=== PATIENT | female | born 1995 | race African-American/Black ===

== ENCOUNTER 2016-08-18 16:09 | Emergency (ER) | payer MEDICAID ==
[~2016-08-18] VITALS: Ht 154.9 cm; Wt 57.2 kg
[~2016-08-18 16:09] MED LIST: ALBUTEROL SULF8.5 GM INH; AMOXICILLIN500 MG ORAL; BACITRACIN1 APPLIC TOPIC; IBUPROFEN600 MG ORAL; NITROFURANTOIN100 M2 ORAL; NKM; TRAMADOL HCL50 MG ORAL
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
[2016-08-18 17:20] LABS: APPEARANCE,URINE CLEAR; KETONES,URINE 2+ (NEGATIVE); LEUKOCYTE ESTERASE ,URINE 1+ (NEGATIVE); NITRITE,URINE NEGATIVE (NEGATIVE); PH,URINE 5 (4.5-8.0); PROTEIN,URINE 2+ (NEGATIVE); UROBILINOGEN,URINE 1 MG/DL (0.0-1.0)
[2016-08-18] MEDS ORDERED: TYLENOL EXTRA500 MG ORAL (17:58)
[2016-08-18] MEDS ORDERED: ATARAX25 MG ORAL (17:58)
[2016-08-18] MEDS ORDERED: ANTI-ITCH28 G1 TP (17:58)
[2016-08-18 18:23] LABS: BACTERIA,URINE FEW /HPF; SQUAMOUS EPITHELIAL CELL,UR MODERATE /LPF (NONE/OCC)
[2016-08-18 18:41] VITALS: BP 120/78
[2016-08-18 18:42] VITALS: BP 122/87
== END 2016-08-18 18:44 | disposition home or self-care (01) ==
LOC: EMR 16:35
DX: L27.0 Generalized skin eruption due to drugs and medicaments taken internally (principal); F19.10 Other psychoactive substance abuse, uncomplicated
CPT/HCPCS: 80300; 81003; 81025; 99284